=== PATIENT | female | born 1995 | race Caucasian/White ===

== ENCOUNTER 2016-09-26 20:28 | Inpatient (IN) ==
[2016-09-26] MEDS ORDERED: KEFZOL 1 GM/D5W 1 GM/50 ML IVPB IV PRN (20:50)
[2016-09-26] MEDS ORDERED: ZOFRAN IV PRN (20:50)
[2016-09-26] MEDS ORDERED: BRETHINE SUBQ PRN (20:50)
[2016-09-26] MEDS ORDERED: AMBIEN PO PRN (20:50)
[2016-09-26] MEDS ORDERED: STADOL IV PRN ×3 (20:50)
[2016-09-26] MEDS ORDERED: TYLENOL PO PRN (20:50)
[2016-09-26] MEDS ORDERED: PEPCID PO ONE (20:50)
[2016-09-26] MEDS ORDERED: PITOCIN 30 UNITS/LR 30 UNITS/500 ML IV.SOLN IV SCH (20:50)
[2016-09-26] MEDS ORDERED: PEPCID IV PRN (20:50)
[2016-09-26] MEDS ORDERED: PEPCID PO PRN (20:50)
[2016-09-26] MEDS ORDERED: REGLAN PO ONE (20:50)
[2016-09-26] MEDS ORDERED: MINERAL OIL ONE (21:11)
[2016-09-26] MEDS ORDERED: XYLOCAINE-MPF 1% ONE (21:11)
[2016-09-26] MEDS ORDERED: CYTOTEC PO ONE (23:00)
[2016-09-26] MEDS: LR 1,000 ML IV ONE (23:04)
[2016-09-26 23:19] LABS: MANUAL DIFF NEEDED? NO
[2016-09-26 23:19] LABS: URINE SOURCE VOIDED
[2016-09-26 23:20] LABS: BASO% 0.2 % (0.0-0.8); EOS# 0.12 X1000 (0.0-0.7); EOS% 0.9 % (0.0-10.0); HEMATOCRIT 35.2 % (37.0-47.0); HEMOGLOBIN 11.4 g/dL (12.0-16.0); IMM GRAN# 0.07 X1000 (0.0-0.04); IMM GRAN% 0.5 % (0.0-0.5); LYMPH# 2.86 X1000 (1.2-3.4); LYMPH% 20.7 % (20.5-51.1); MCH 31.8 PG (27-31); MCHC 32.4 g/dL (33-37); MCV 98.1 FL (81-99); MONO# 1.09 X1000 (0.11-0.59); MONO% 7.9 % (1.7-9.3); MPV 11.3 FL (7.4-10.4); NEUT% 69.8 % (42.2-75.2); PLT 265 X1000 (130-400); RBC 3.59 XMIL (4.2-5.4)
[2016-09-26 23:43] LABS: BILIRUBIN URINE NEGATIVE (NEGATIVE); BLOOD URINE NEGATIVE (NEGATIVE); CLARITY CLEAR (CLEAR); COLOR YELLOW; GLUCOSE URINE NEGATIVE (NEGATIVE); LEUKOCYTES URINE TRACE (NEGATIVE); NITRITE URINE NEGATIVE (NEGATIVE); PROTEIN URINE NEGATIVE (NEGATIVE); UR AMPHETAMINES QUAL NONE DETECTED (NONE DETECT); UR BARBITUATES QUAL NONE DETECTED (NONE DETECT); UR BENZODIAZEPIN QUAL NONE DETECTED (NONE DETECT); UR CANNABINOIDS QUAL NONE DETECTED (NONE DETECT); UR COCAINE QUAL NONE DETECTED (NONE DETECT); UR MDMA QUAL NONE DETECTED (NONE DETECT); UR METHADONE QUAL NONE DETECTED (NONE DETECT); UR METHAMPHETAMINE QUAL NONE DETECTED (NONE DETECT); UR OPIATES QUAL NONE DETECTED (NONE DETECT); UR OXYCODONE QUAL NONE DETECTED (NONE DETECT); UR PCP QUAL NONE DETECTED (NONE DETECT); UR TCA QUAL NONE DETECTED (NONE DETECT); UROBILINOGEN URINE NORMAL
[2016-09-27] MEDS: CYTOTEC PO SCH ×2 (03:20→07:10)
[2016-09-27] MEDS: LR 1,000 ML IV ONE ×2 (06:53→08:28)
[2016-09-27] MEDS ORDERED: FENTANYL-BUPIV-NS 2 MCG-0.1% 200 ML EPIDURAL PRN (07:39)
[2016-09-27] MEDS ORDERED: MARCAINE 0.25% PF INJ ONE (07:45)
[2016-09-27] MEDS ORDERED: PITOCIN 20 UNITS/LR 20 UNITS/1,000 ML IV.SOLN IV SCH (11:18)
[2016-09-27] MEDS ORDERED: HYDROXYZINE IM PRN (11:18)
[2016-09-27] MEDS ORDERED: PITOCIN IM PRN (11:18)
[2016-09-27] MEDS ORDERED: PERCOCET-5 PO PRN (11:18)
[2016-09-27] MEDS ORDERED: HYDROXYZINE PO PRN (11:18)
[2016-09-27] MEDS ORDERED: MINERAL OIL PO PRN (11:18)
[2016-09-27] MEDS ORDERED: BENADRYL PO PRN (11:18)
[2016-09-27] MEDS ORDERED: BENADRYL IV PRN (11:18)
[2016-09-27] MEDS ORDERED: PERI MEDS (DERMOPLAST/NUPERCAINAL/TUCKS) MISC PRN (11:18)
[2016-09-27] MEDS ORDERED: BOOSTRIX VACCINE IM ONE (11:18)
[2016-09-27] MEDS ORDERED: CYTOTEC PO PRN (11:18)
[2016-09-27] MEDS ORDERED: M-M-R II VACCINE SUBQ ONE (11:18)
[2016-09-27] MEDS ORDERED: PITOCIN 30 UNITS/LR 30 UNITS/500 ML IV.SOLN IV ONE (11:18)
[2016-09-27] MEDS ORDERED: XYLOCAINE-MPF 1% INJ PRN (11:18)
[2016-09-27] MEDS: MOTRIN PO PRN ×2 (11:58→21:11)
[2016-09-27] MEDS: PERCOCET-10 PO PRN ×4 (11:58→21:58)
[2016-09-27] MEDS: PERICOLACE PO SCH (21:11)
[2016-09-27] MEDS ORDERED: PNEUMOVAX 23 IM ONE (21:38)
[2016-09-27] MEDS: AMBIEN PO PRN (22:55)
[2016-09-28 06:38] LABS: HEMATOCRIT 35.1 % (37.0-47.0); HEMOGLOBIN 11.1 g/dL (12.0-16.0); MCH 31.2 PG (27-31); MCHC 31.6 g/dL (33-37); MCV 98.6 FL (81-99); MPV 10.9 FL (7.4-10.4); RBC 3.56 XMIL (4.2-5.4)
[2016-09-28] MEDS: MOTRIN PO PRN ×2 (09:48→21:06)
[2016-09-28] MEDS: PERCOCET-10 PO PRN ×4 (09:48→21:06)
[2016-09-28] MEDS: PERICOLACE PO SCH (21:06)
[2016-09-29] MEDS: AMBIEN PO PRN (02:14)
[2016-09-29] MEDS: PERCOCET-10 PO PRN ×3 (02:14→11:16)
[2016-09-29] MEDS: MOTRIN PO PRN (07:27)
[2016-09-29 07:45] VITALS: BP 107/57
--- NOTE | 2016-09-29 22:26 | DISCHARGE SUMMARY ---
ADMISSION DATE: 09/26/2016 DISCHARGE DATE: 09/29/2016 PREOPERATIVE DIAGNOSES: Intrauterine at 38 + 2 weeks. SECONDARY DIAGNOSIS: Suspected intrauterine growth restriction. PRINCIPAL PROCEDURE: Normal spontaneous vaginal delivery. HOSPITAL COURSE: Patient admitted on 09/26/2016 for scheduled induction of labor. After an uneventful labor course patient delivered via normal spontaneous vaginal delivery a viable male , time 0951 on 09/27/2016. weight 6 pounds 13 ounces. Apgars 9 and 9. patient made an uneventful recovery. She notes lochia less than menses. Her pain is well controlled. She is tolerating a regular diet without nausea or vomiting. CONDITION AT DISCHARGE: Stable. ELIMINATION CAPACITY: Independent. FEEDING CAPACITY: Independent. LOCOMOTION CAPACITY: Independent. REHAB POTENTIAL: Good. PROGNOSIS: Good. DISCHARGE MEDICATIONS: Include Percocet 5/325 1-2 tabs p.o. q.6 hours p.r.n. pain. DISCHARGE INSTRUCTIONS: The patient is to maintain a regular diet. Physical activity as tolerated. Patient is ordered to maintain pelvic rest for 6 weeks. Patient is ordered to call or return if fever greater than 100.4, heavy vaginal bleeding, foul smell vaginal discharge or any acute changes. She is to be discharged home with orders to follow Dr. Scanlon in 6 weeks. cc: Wesly Scanlon MD
== END 2016-09-29 13:30 | disposition home or self-care (01) ==
LOC: P.LD 20:28
PROVIDERS: ADMIT Obstetrics & Gynecology; ATTEND Obstetrics & Gynecology